=== PATIENT | male | born 1985 | race Caucasian/White ===

== ENCOUNTER 2017-02-11 16:01 | Emergency (ER) ==
[2017-02-11 16:07] VITALS: BP 165/96; TEMP 98.3; BMI 33.9
[2017-02-11] MEDS ORDERED: TORADOL IM STA (16:33)
[2017-02-11] MEDS ORDERED: NORFLEX IM STA (16:33)
--- NOTE | 2017-02-11 16:36 | ED.PDOC ---
General ED Provider: Dr. PAYAL DEWEY-ER Chief Complaint: Back Pain Stated Complaint: i hurt my lower back moving some boxes--it still hurts and feels tight--no hx of falling Time Seen by Physician: 16:35 Mode of Arrival: Walk-In Information Source: Patient, Family Exam Limitations: No limitations Nursing and Triage Documentation Reviewed and Agree: Yes Musculoskeletal Complaint Exam - Back Pain Complaint/Exam Mechanism of Injury: Reports: No known trauma Onset/Duration: 24hrs Symptoms Are: Still present Timing: Constant Initial Severity: Mild Current Severity: Moderate Location: Reports: Discrete (lumbar spine) Character: Reports: Dull, Aching, Throbbing, Spasmodic, Stiffness Aggravating: Reports: Movements, Lifting, Bending, Walking Alleviating: Reports: None Associated Signs and Symptoms: Denies: Swelling, Redness, Bruising, Fever, Weakness, Numbness, Tingling, Abdominal pain, Flank pain, Bladder incontinence, Bowel incontinence, Weight loss, Pain with weight bearing Related History: Reports: Previous back injury Cauda Equina Risk Factors: Reports: None Epidural Abcess Risk Factors: Reports: None Related Surgical History: Reports: None Focal Tenderness: Yes Paraspinal Muscle Tenderness: Yes Paraspinal Muscle Spasm: Yes Scoliosis: No Lordosis: No Kyphosis: No SLR Test: Right Negative, Left Negative Hip Motion Testing Pain: Right Negative, Left Negative Focal Weakness: Present: None Focal Sensory Loss: Present: None Gait: Present: Abnormal Differential Diagnoses: Strain, Sprain Review of Systems - Review Of Systems Constitutional: Reports: No symptoms Eyes: Reports: No symptoms Ears, Nose, Mouth, Throat: Reports: No symptoms Respiratory: Reports: No symptoms Cardiac: Reports: No symptoms GI: Reports: No symptoms : Reports: No symptoms Musculoskeletal: Reports: Back pain, Muscle pain Skin: Reports: No symptoms Neurological: Reports: No symptoms Endocrine: Reports: No symptoms Hematologic/Lymphatic: Reports: No symptoms All Other Systems: Reviewed and Negative Past Medical History - Past Medical History Endocrine: Reports: Unknown Cardiovascular: Reports: Unknown Respiratory: Reports: Unknown Hematological: Reports: Unknown Gastrointestinal: Reports: Unknown Genitourinary: Reports: Unknown Neuro/Psych: Reports: Unknown Musculoskeletal: Reports: Unknown Cancer: Reports: Unknown - Surgical History General Surgical History: Reports: Unknown - Family History Family History: Reports: Unknown - Social History Smoking Status: Current every day smoker Hx Substance Use: No Alcohol Screening: None Lives: With family Physical Exam - Physical Exam Appearance: Well-appearing, No pain distress, Well-nourished Pain Distress: Mild Eyes: DIEGO, EOMI, Conjunctiva clear ENT: Ears normal, Nose normal, Oropharynx normal Neck: Supple Respiratory: Airway patent, Breath sounds clear, Breath sounds equal, Respirations nonlabored Cardiovascular: RRR, Pulses normal, No rub, No murmur GI/: Soft, Nontender, No masses, Bowel sounds normal, No Organomegaly Musculoskeletal: Limited ROM Skin: Warm, Dry, Normal color Neurological: Sensation intact, Motor intact, Reflexes intact, Cranial nerves intact, Alert, Oriented Psychiatric: Affect appropriate, Mood appropriate Critical Care Note - Critical Care Note Total Time (mins): 0 Course - Course Orders, Labs, Meds: Orders Category Date Time Status Ketorolac Tromethamine [Toradol] MEDS 02/11/17 16:33 Discontinued 60 mg IM ONCE STA Orphenadrine Citrate [Norflex] MEDS 02/11/17 16:33 Discontinued 60 mg IM ONCE STA Medications Discontinued Medications Generic Name Dose Route Start Last Admin Trade Name Freq PRN Reason Stop Dose Admin Ketorolac Tromethamine 60 mg 02/11/17 16:33 Toradol IM 02/11/17 16:34 ONCE STA Orphenadrine Citrate 60 mg 02/11/17 16:33 Norflex IM 02/11/17 16:34 ONCE STA Vital Signs: Temp Pulse Resp BP Pulse Ox 02/11/17 16:01 98.3 F 95 H 16 165/96 H 99 Departure - Departure Time of Disposition: 16:37 Disposition: HOME SELF-CARE Discharge Problem: Backache Instructions: Back Pain (ED) Condition: Good Pt referred to PMD for follow-up: Yes Additional Instructions: toradol 10mg qid prn pain #16--norflex 100mg q 12hrs #30--heat alt ice--f/u with pcp this week Allergies/Adverse Reactions: Allergies Penicillins Adverse Reaction (Verified 02/11/17 16:04) Home Medications: Ambulatory Orders 1 [No Reported Medications] 02/11/17 Disposition Discussed With: Patient, Family
== END 2017-02-11 17:12 | disposition home or self-care (01) ==
LOC: ED 16:01
DX: M54.5 Low back pain (principal); F17.210 Nicotine dependence, cigarettes, uncomplicated; X50.9XXA Other and unspecified overexertion or strenuous movements or postures, initial encounter
CPT/HCPCS: 96372; 99283

== ENCOUNTER 2017-02-24 06:33 | Emergency (ER) ==
[2017-02-24 06:40] VITALS: TEMP 97.9; BMI 33.2
[2017-02-24] MEDS ORDERED: NORFLEX IM STA (06:46)
[2017-02-24] MEDS ORDERED: TORADOL IM STA (06:46)
--- NOTE | 2017-02-24 06:47 | ED.PDOC ---
General Stated Complaint: my back hurts--i was feeling better but began to hurt again Time Seen by Physician: 06:45 Mode of Arrival: Walk-In Information Source: Patient, Family Exam Limitations: No limitations Nursing and Triage Documentation Reviewed and Agree: Yes <PAYAL IBANEZ - Last Filed: 02/24/17 06:45> <MARLYS OJEDA - Last Filed: 02/25/17 08:51> ED Provider: Dr. MARLYS OJEDA Chief Complaint: Back Pain Musculoskeletal Complaint Exam - Back Pain Complaint/Exam Mechanism of Injury: Reports: No known trauma Onset/Duration: several days Symptoms Are: Still present Timing: Intermittent Episodes Lasting: Days Initial Severity: Mild Current Severity: Moderate Location: Reports: Discrete (lower back) Character: Reports: Dull, Aching, Spasmodic, Stiffness Aggravating: Reports: Movements, Lifting, Bending Alleviating: Reports: None Associated Signs and Symptoms: Denies: Swelling, Redness, Bruising, Fever, Weakness, Numbness, Tingling, Abdominal pain, Flank pain, Bladder incontinence, Bowel incontinence, Weight loss, Pain with weight bearing Related History: Reports: Previous back injury TAD Risk Factors: Reports: None AAA Risk Factors: Reports: None Cauda Equina Risk Factors: Reports: None Epidural Abcess Risk Factors: Reports: None Related Surgical History: Reports: None Focal Tenderness: Yes Paraspinal Muscle Tenderness: Yes Paraspinal Muscle Spasm: No Scoliosis: No Lordosis: No Kyphosis: No SLR Test: Right Negative, Left Negative Hip Motion Testing Pain: Right Negative, Left Negative Focal Weakness: Present: None Focal Sensory Loss: Present: None Gait: Present: Abnormal Differential Diagnoses: Herniated Disk, Renal Colic, Strain <PAYAL IBANEZ - Last Filed: 02/24/17 06:45> Review of Systems - Review Of Systems Constitutional: Reports: No symptoms Eyes: Reports: No symptoms Ears, Nose, Mouth, Throat: Reports: No symptoms Respiratory: Reports: No symptoms Cardiac: Reports: No symptoms GI: Reports: No symptoms : Reports: No symptoms Musculoskeletal: Reports: Back pain, Muscle pain Skin: Reports: No symptoms Neurological: Reports: No symptoms Endocrine: Reports: No symptoms Hematologic/Lymphatic: Reports: No symptoms All Other Systems: Reviewed and Negative <PAYAL IBANEZ - Last Filed: 02/24/17 06:45> Past Medical History - Past Medical History Endocrine: Reports: Unknown Cardiovascular: Reports: Unknown Respiratory: Reports: Unknown Hematological: Reports: Unknown Gastrointestinal: Reports: Unknown Genitourinary: Reports: Unknown Neuro/Psych: Reports: Unknown Musculoskeletal: Reports: Unknown Cancer: Reports: Unknown - Surgical History General Surgical History: Reports: Unknown - Family History Family History: Reports: Unknown - Social History Smoking Status: Current every day smoker Hx Substance Use: No Alcohol Screening: None Lives: With family - Immunizations Tetanus Shot up to Date: Yes <PAYAL IBANEZ - Last Filed: 02/24/17 06:45> Physical Exam - Physical Exam Appearance: Well-appearing, No pain distress, Well-nourished Pain Distress: Mild Eyes: DIEGO ENT: Ears normal, Nose normal, Oropharynx normal Neck: Supple Respiratory: Airway patent Cardiovascular: RRR, Pulses normal, No rub, No murmur GI/: Soft, Nontender, No masses, Bowel sounds normal, No Organomegaly Musculoskeletal: Limited ROM Skin: Warm Neurological: Sensation intact Psychiatric: Affect appropriate, Mood appropriate <PAYAL IBANEZ - Last Filed: 02/24/17 06:45> Interpretation - Radiology Interpretation Radiology Interpretation By: ED Physician Radiology Results: Negative Exam Interpreted: CT Scan (lumber spine and abdomen and pelvis. ) <MARLYS OJEDA Last Filed: 02/25/17 08:51> Re-Evaluation - Re-Evaluation Time of Re-Evaluation: 08:21 Status: Improved Vital Signs Stable: Yes <MARLYS OJEDA Last Filed: 02/25/17 08:51> Physician Notification - Case Discussed Physician Notified: dr [email or web address] Time of Notification: 07:00 <PAYAL IBANEZ - Last Filed: 02/24/17 06:45> Critical Care Note - Critical Care Note Total Time (mins): 0 <MARLYS OJEDA Last Filed: 02/25/17 08:51> Departure <PAYAL IBANEZ - Last Filed: 02/24/17 06:45> - Departure Time of Disposition: 08:22 Pt referred to PMD for follow-up: Yes Disposition Discussed With: Patient, Family <MARLYS OJEDA Last Filed: 02/25/17 08:51> - Departure Disposition: HOME SELF-CARE Discharge Problem: Low back sprain Qualifiers: Encounter type: initial encounter Qualifier Code: (S33.9XXA) Sprain of unspecified parts of lumbar spine and pelvis, initial encounter Instructions: Lower Back Exercises (ED), Low Back Strain (ED) Condition: Fair Additional Instructions: Take your medications as prescribed. Please call your Family Physician as soon as possible to schedule a follow-up appointment. Prescriptions: Ketorolac Tromethamine [Toradol] 10 mg PO Q6HR #30 tablet Allergies/Adverse Reactions: Allergies Penicillins Adverse Reaction (Verified 02/11/17 16:04) Home Medications: Ambulatory Orders Ketorolac Tromethamine [Toradol] 10 mg PO Q6HR #30 tablet 02/24/17
--- NOTE | 2017-02-24 07:16 | CT ---
Exam: CT lumbar spine without contrast History: Lower back pain Technique: [address] lumbar spine with multiplanar reformations FINDINGS: Lumbar spine shows normal alignment. Vertebral body heights maintained. No fracture altagracia es or suspicious bony lesions. No immediate paravertebral soft tissue abnormalities. Sacrum is int act. L1-L2: Normal L2-L3: Normal L3-L4: Normal L4-L5: Normal L5 S1: Normal Impression: 1. Normal CT lumbar spine
[2017-02-24 07:17] LABS: BILIRUBIN,URINE Negative (NEGATIVE); KETONES,URINE Negative (NEGATIVE); LEUKOCYTE ESTERASE ,URINE Negative (NEGATIVE); NITRITE,URINE Negative (NEGATIVE); PROTEIN,URINE Negative (NEGATIVE); URINE, BLOOD Negative (NEGATIVE)
[2017-02-24 07:18] LABS: ADD URINE MICROSCOPIC NO
--- NOTE | 2017-02-24 07:18 | CT ---
Exam: CT of the abdomen and pelvis without contrast History: Flank pain Technique: [address] of the abdomen and pelvis without intravascular contrast FINDINGS: The lung bases are clear. No significant liver abnormality. The adrenals, pancreas and sp meli are unremarkable. The stomach and hiatus are unremarkable.The gallbladder appears normal. Kidne ys and proximal collecting system are unremarkable. The appendix is normal. Bowel loops demonstrate normal caliber. No inflamatory change seen in the mesentery or retroperitoneum. Vascular structures appear normal by noncontrast CT. Pelvic genitourinary structures appear normal. Pelvic bowel loops are unremarkable. No inflammatory change in the pelvic fat. No acute abnormality of the abdominal or pelvic skeleton. Impression: 1. No inflammatory process, bowel or urinary obstruction is seen. No significant abnormality of th e abdomen or pelvis.
[2017-02-24 08:37] VITALS: BP 145/91
== END 2017-02-24 08:30 | disposition home or self-care (01) ==
LOC: ED 06:33
DX: S33.9XXA Sprain of unspecified parts of lumbar spine and pelvis, initial encounter (principal); F17.210 Nicotine dependence, cigarettes, uncomplicated
CPT/HCPCS: 81001; 96372; 99283

== ENCOUNTER 2017-05-09 13:10 | Outpatient (CLI) ==
[2017-05-09 13:25] LABS: BASOPHILS # (AUTO) 0.1 K/uL (0-0.2); BASOPHILS % (AUTO) 1.4 % (0.0-3.0); EOSINOPHILS # (AUTO) 0.8 K/ul (0.0-0.7); EOSINOPHILS % (AUTO) 11.4 % (0.0-7.0); HEMATOCRIT 42.3 % (42.0-52.0); HEMOGLOBIN 14.6 g/dl (14.0-18.0); IMMATURE GRANULOCYTE % (AUTO) 0.3 % (0.0-5.0); LYMPHOCYTES # (AUTO) 1.9 K/uL (0.60-3.4); LYMPHOCYTES % (AUTO) 27.3 (10.0-50.0); MEAN CORPUSCULAR HEMOGLOBIN 30.5 pg (27.0-31.0); MEAN CORPUSCULAR HGB CONC 34.5 (31.8-35.4); MEAN CORPUSCULAR VOLUME 88.3 fl (80.0-94.0); MONOCYTES # (AUTO) 0.5 K/uL (0.4-2.0); NEUTROPHILS # (AUTO) 3.7 K/ul (2.0-6.9); NEUTROPHILS % (AUTO) 52.6; PLATELET COUNT 255 10^3/uL (140-440); RED BLOOD COUNT 4.79 10^6/ul (4.70-6.10)
[2017-05-09 13:56] LABS: ALBUMIN 3.9 g/dL (3.4-5.0); ALBUMIN/GLOBULIN RATIO 1.11; ANION GAP 13.4; BILIRUBIN,TOTAL 0.51 mg/dL (0.00-1.20); BUN/CREATININE RATIO 12.5; CALCIUM 9.6 mg/dL (8.2-10.2); CHOL/HDL RATIO 5.4 (4.5-6.4); CREATININE 1.04 mg/dL (0.60-1.10); POTASSIUM 4.4 mmol/L (3.5-5.1); TOTAL PROTEIN 7.4 g/dL (6.4-8.2)
== END 2017-05-09 13:11 | disposition home or self-care (01) ==
LOC: LAB 13:10
PROVIDERS: ATTEND Emergency Medicine
DX: R42 Dizziness and giddiness (principal); E66.9 Obesity, unspecified; I10 Essential (primary) hypertension
CPT/HCPCS: 36415; 80053; 80061; 84443; 85025

== ENCOUNTER 2018-04-19 12:25 | Outpatient (CLI) | END 2018-04-19 12:26 | disposition home or self-care (01) | LOC: LAB 12:25 | PROVIDERS: ATTEND Emergency Medicine | DX: E78.5 Hyperlipidemia, unspecified (principal); I10 Essential (primary) hypertension; E66.9 Obesity, unspecified | CPT/HCPCS: 36415; 80053; 80061; 84443; 85025 ==